=== PATIENT | female | born 1985 | race Caucasian/White ===

== ENCOUNTER 2020-04-30 09:18 | Emergency (ER) | payer BC, SELFPAY ==
[2020-04-30 09:21] VITALS: BP 123/80; PULSE 100; RESP 12; TEMP 37; O2SAT 98
--- NOTE | 2020-04-30 09:43 | ED.SKABFB ---
HPI - Skin/Abscess/Foreign Bdy General Chief complaint: Skin/Abscess/Foreign Body Stated complaint: lump on neck Time Seen by Provider: 04/30/20 09:19 Source: patient Mode of arrival: ambulatory Limitations: no limitations History of Present Illness HPI narrative: Patient a 34-year-old female who presents with a small tender lump underneath the chin has been present since this morning pain is moderate aching pain worse with palpation. Patient notes over the last month she has had seasonal allergy-like symptoms with congestion rhinorrhea postnasal drainage denies fever cough vomiting diarrhea or other complaints Related Data Allergies Allergy/AdvReac Type Severity Reaction Status Date / Time amoxicillin AdvReac Mild ACQUIRES Verified 03/03/20 10:01 YEAST INFECTIONS. 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 HEAD: Normocephalic, atraumatic. EYES: PERRLA and EOMI. ENT: Nares clear, no rhinorrhea or epistaxis. Mucous membranes moist. Oropharynx without tonsillar hypertrophy exudate or other lesions. CHEST: Clear to auscultation. No respiratory distress. No wheezes rales or rhonchi HEART: Regular rate and rhythm. No murmur heard. EXTREMITIES: Normal range of motion. No edema. SKIN: Warm, dry, no rash. Single small submental lymph node less than 1/2 cm in diameter NEURO: No focal deficits. Alert and oriented x3. PSYCH: Normal mood and affect. Course Course Emergency Course: Patient in the room in no distress aware of case findings treatment plan and diagnosis Vital Signs Vital signs: Vital Signs Temperature 98.6 F 04/30/20 09:21 Pulse Rate 100 04/30/20 09:21 Respiratory Rate 12 04/30/20 09:21 Blood Pressure 123/80 04/30/20 09:21 Pulse Oximetry 98 04/30/20 09:21 Temperature 98.6 F 04/30/20 09:21 Pulse Rate 100 04/30/20 09:21 Respiratory Rate 12 04/30/20 09:21 Blood Pressure 123/80 04/30/20 09:21 Pulse Oximetry 98 04/30/20 09:21 MDM - Skin/Abscess/Foreign Bdy MDM Narrative Medical decision making narrative: Patient in the room will be referred to ENT will be treated symptomatically Discharge Plan Discharge Clinical Impression: Lymphadenopathy Patient Disposition: Home, Self-Care Condition: Stable Instructions: Antibiotic Form, Lymphadenopathy (ED) Additional Instructions: Follow-up with ENT in the next 7 days to set up for reevaluation Return if symptoms worsen or concerns Only take medications as directed Follow patient education sheets Prescriptions: New loratadine [Claritin] 10 mg tablet 10 mg PO DAILY PRN (Reason: allergy symptoms) Qty: 10 RF: 0 fluticasone propionate 50 mcg/actuation spray,suspension 2 spray NASAL DAILY PRN (Reason: nasal congestion) Qty: 9.9 RF: 0 ibuprofen [IBU] 600 mg tablet 600 mg PO QID PRN (Reason: fever or pain) Qty: 7 RF: 0 Follow-up/Referrals: Edwar,Jessica Syed MD [Primary Care Provider] - Ziggy Dalal MD [Physician] - Jorge Littlejohn MD [Physician] -
[2020-04-30] MEDS: IBUPROFEN 600 MG TABLET PO (10:02)
[2020-04-30 10:03] VITALS: BP 112/69; PULSE 69; RESP 16; O2SAT 99
== END 2020-04-30 10:05 | disposition home or self-care (01) ==
PROVIDERS: Emergency Provider Emergency Medicine; PCP Internal Medicine
DX: J45.909 Unspecified asthma, uncomplicated (principal); R59.1 Generalized enlarged lymph nodes
CPT/HCPCS: 99283; A9270

== ENCOUNTER → 2022-03-14 07:58 | Outpatient (CLI) | payer BC, SELFPAY ==
--- NOTE | ~2022-03-14 | MMUS_ITS ---
EXAMINATION: MM diagnostic josé BI w sunny, US breast BI limited HISTORY: Pain at the 12:00 location of the right breast and the upper outer quadrant of the left radha st TECHNIQUE: Craniocaudal, mediolateral, and mediolateral oblique 3-D tomosynthesis images of the breas ts were performed and synthetic 2-D images were generated. CAD analysis was submitted and interpreted . High resolution limited bilateral breast ultrasound was performed. COMPARISON: None, baseline BREAST PARENCHYMAL COMPOSITION: The breasts are extremely dense, which lowers the sensitivity of mamm ography. FINDINGS: MAMMOGRAPHIC FINDINGS: There is no suspicious mass, calcification, or architectural distortion in either breast to suggest malignancy. No mammographic correlate is identified for the reported pain in either breast. ULTRASOUND: There is no evidence of focal abnormal solid or cystic mass in the vicinity of the patient's right br east pain. There is a 4 mm x 1 mm oval, circumscribed, parallel, hypoechoic mass with no posterior fe atures or internal vascularity at the 2:00 location 6 cm from the nipple in the left breast. IMPRESSION: 1. No mammographic correlate for the pain in either breast. A small mass in the upper outer quadrant left breast likely represents a complicated cyst. 2. Recommend 6 month follow-up limited left breast ultrasound. Clinical follow-up is recommended for the patient's breast pain. BI-RADS category 3, probably benign findings. Reviewed, dictated and finalized at location A. IMPRESSION: 1. No mammographic correlate for the pain in either breast. A small mass in the upper outer quadrant left breast likely represents a complicated cyst. 2. Recommend 6 month follow-up limited left breast ultrasound. Clinical follow- up is recommended for the patient's breast pain. BI-RADS category 3, probably benign findings.
== END ==
PROVIDERS: PCP Nurse Practitioner Family; Visit Provider Nurse Practitioner
DX: N63.20 Unspecified lump in the left breast, unspecified quadrant (principal); R92.8 Other abnormal and inconclusive findings on diagnostic imaging of breast
CPT/HCPCS: 76642; 77062; 77066; G0279

== ENCOUNTER 2025-07-17 08:52 | Outpatient (CLI) | payer BC, SELFPAY ==
--- NOTE | ~2025-07-17 | US_ITS ---
EXAMINATION: MM diagnostic josé BI w sunny HISTORY: Left-sided pain TECHNIQUE: Craniocaudal and mediolateral oblique 3-D tomosynthesis images were obtained and synthetic 2-D images were generated. CAD analysis was submitted and interpreted. Grayscale sonography over the area(s) of interest with color Doppler if there is a finding. COMPARISON: 2021 BREAST PARENCHYMAL COMPOSITION: Dense: The breasts are extremely dense MAMMOGRAM FINDINGS: No suspicious masses are seen. There are no suspicious calcifications. No unexplained architectural distortion is seen. There are no skin or nipple abnormalities identified. There is no adenopathy seen on the images submitted. ULTRASOUND FINDINGS: Sonography through the areas of pain indicated by the patient demonstrates no suspicious masses. A tiny probable cyst at 2:00 has decreased in size since 2021, to 3 x 1 mm. This is considered benign. IMPRESSION: No mammographic or sonographic evidence to suggest malignancy is seen. The patient may return to screening mammography as per ACR guidelines. BI-RADS 2 - Benign. Reviewed, dictated and finalized at location B. [employer] IMPRESSION: No mammographic or sonographic evidence to suggest malignancy is seen. The lexus ent may return to screening mammography as per ACR guidelines. BI-RADS 2 - Benign.
== END 2025-07-17 08:53 | disposition home or self-care (01) ==
PROVIDERS: PCP Nurse Practitioner; Visit Provider Nurse Practitioner
DX: N63.0 Unspecified lump in unspecified breast (principal)
CPT/HCPCS: 76642; 77062; 77066; G0279